=== PATIENT | female | born 1975 | race Two or more races ===

== ENCOUNTER 2016-11-02 12:15 | Emergency (ER) | payer BC ==
[~2016-11-02] VITALS: Ht 167.6 cm; Wt 63.5 kg
--- NOTE | 2016-11-02 12:17 | NUR ---
pt to er bed 10. presents w/ l index fingernail avulsion. accidentally cut it w/ a saw. pt unable to recall last time she got tetanus shot. anxious aircraft captain. awaiting md lima.
--- NOTE | 2016-11-02 12:30 | NUR ---
adalid rios at bedside for eval.
[2016-11-02] MEDS ORDERED: ONDANSETRON 4 MG TAB.RAPDIS ONE ×2 (12:38→13:51)
--- NOTE | 2016-11-02 12:42 | NUR ---
nauseous. verbal order for zofran 4mg odt. carried out.
[2016-11-02] MEDS ORDERED: CEPHALEXIN MONOHYDRATE 500 MG CAPSULE PO ONE ×2 (13:00→13:04)
[2016-11-02] MEDS ORDERED: TDAP [DIPH/PERTUSSIS/TET] 0.5 ML VIAL IM ONE ×2 (13:00→13:05)
[2016-11-02] MEDS ORDERED: BUPIVACAINE 0.5 % PF 150 MG/30 ML VIAL TP ONE (13:00)
[2016-11-02] MEDS ORDERED: ONDANSETRON 4 MG TAB.RAPDIS SL ONE ×2 (13:30→14:00)
--- NOTE | 2016-11-02 13:34 | NUR ---
radiology at bedside for lt index finger xray.
--- NOTE | 2016-11-02 14:11 | NUR ---
wound care provided. Patient discharged to home in stable condition. Written and verbal after care instructions given. Patient verbalizes understanding of instruction.
[2016-11-02 14:12] VITALS: BP 132/67
== END 2016-11-02 14:13 | disposition home or self-care (01) ==
LOC: ER 12:17
DX: S62.631B Displaced fracture of distal phalanx of left index finger, initial encounter for open fracture (principal); S61.201A Unspecified open wound of left index finger without damage to nail, initial encounter; R11.0 Nausea; W27.0XXA Contact with workbench tool, initial encounter; Y93.89 Activity, other specified; Y92.89 Other specified places as the place of occurrence of the external cause; Y99.9 Unspecified external cause status
CPT/HCPCS: 73140-TC; 90715; A4606; A6402; Q0162; Z7610